=== PATIENT | female | born 2005 | race Caucasian/White ===

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

== ENCOUNTER → 2023-01-14 | Outpatient (CLI) | payer OTHER ==
--- NOTE | 2023-01-14 12:49 | Diagnostic Imaging Report ---
Follow-up fracture, pain EXAMINATION: Right foot 01/14/2023 COMPARISON: 10/17/2018. I correlated these findings with radiographs of outside radiographs of the ankle from 12/17/2022 3 views of foot FINDINGS: Again seen is a spiral type fracture of the distal aspect of the 5th metatarsal. Alignment is fairly similar to previous with mild diastasis of approximately 2 mm. Mild overlying soft tissue swelling is noted. No significant callus formation is seen. In addition, there is a small avulsion fracture along the dorsal aspect of the navicular which is stable from recent examination. IMPRESSION: 1. Stable appearing nonhealed fracture of the distal 5th metatarsal. 2. Small avulsion fracture from the dorsum of the navicular. Dictated on workstation # [id number]
== END ==
LOC: ORTHO 08:34
PROVIDERS: ATTEND Orthopaedic Surgery
DX: S92.354D Nondisplaced fracture of fifth metatarsal bone, right foot, subsequent encounter for fracture with routine healing (principal); X58.XXXD Exposure to other specified factors, subsequent encounter
CPT/HCPCS: 73630; G0463; 99213

== ENCOUNTER → 2023-02-16 | Outpatient (CLI) | payer OTHER ==
--- NOTE | 2023-02-16 21:03 | Diagnostic Imaging Report ---
INDICATION: Follow-up fracture EXAMINATION: Right foot 02/16/2023 COMPARISON: 01/14/2023 FINDINGS: 3 views of the foot There is a stable avulsion fracture along the dorsum of the navicular. A spiral-type fracture of the [id number] 5th metatarsal is again noted and unchanged in alignment. There is some early callus formation. Incomplete healing seen at this time. Remaining osseous structures intact. IMPRESSION: 1. Healing 5th metatarsal fracture. 2. Stable avulsion fracture along the dorsum of the navicular. Dictated by: Dictated on workstation # [id number]
== END ==
LOC: ORTHO 15:20
PROVIDERS: ATTEND Orthopaedic Surgery
DX: S92.354D Nondisplaced fracture of fifth metatarsal bone, right foot, subsequent encounter for fracture with routine healing (principal); X58.XXXD Exposure to other specified factors, subsequent encounter
CPT/HCPCS: 73630; G0463; 99213